=== PATIENT | male | born 1990 | race Caucasian/White ===

== ENCOUNTER 2017-07-03 16:50 | Emergency (ER) | payer OTHER ==
[2017-07-03 16:58] VITALS: BP 116/71
--- NOTE | 2017-07-03 17:23 | EDM.PDOC ---
ED HPI GENERAL MEDICAL PROBLEM - General Chief Complaint: Back Pain or Injury Stated Complaint: FELL/HIP Time Seen by Provider: 07/03/17 17:18 Source of Information: Reports: Patient History Limitations: Reports: No Limitations - History of Present Illness INITIAL COMMENTS - FREE TEXT/NARRATIVE: Bowen is a 27 yo male who presents to the ER with complaint of left low back and hip pain. States he was working at [employer] and was tightening a nut on a bolt when the wrench slipped off the nut. States he fell straight back onto his low back/buttocks/hip. He is unable to fully bear weight on the left leg. States when he straightens his leg all the way out it causes discomfort. If he bends his hip and knee it will give him some relief. Denies any bowel or bladder problems. Onset: Today Onset Date: 07/03/17 Onset Time: 16:45 Location: Reports: Back, Pelvis, Radiates to (left buttocks/hip) Quality: Reports: Sharp Severity: Moderate Improves with: Reports: Immobilization Worsens with: Reports: Movement Associated Symptoms: Reports: No Other Symptoms Left Lower Back Pain Score (Numeric/FACES): 6 - Related Data Allergies Allergy/AdvReac Type Severity Reaction Status Date / Time No Known Allergies Allergy Verified 07/03/17 17:06 Home Meds: Home Meds Multivitamin [Daily Multiple Vitamin] 1 tab PO DAILY 07/03/17 [History] Past Medical History - Past Surgical History Endocrine Surgical History: Reports: Other (See Below) Other Endocrine Surgeries/Procedures: partial thyroidectomy Social & Family History - Tobacco Use Smoking Status *Q: Never Smoker - Caffeine Use Caffeine Use: Reports: Soda - Recreational Drug Use Recreational Drug Use: No ED ROS GENERAL - Review of Systems Review Of Systems: ROS reveals no pertinent complaints other than HPI. Musculoskeletal: Reports: Back Pain, Leg Pain Neurological: Reports: Difficulty Walking. Denies: Numbness, Tingling, Weakness ED EXAM,LOWER BACK PAIN/INJURY - Physical Exam Exam: See Below Exam Limited By: No Limitations General Appearance: Alert, Mild Distress Back Exam: Muscle Spasm, Paraspinal Tenderness (L5/S1 left sided) Extremities: Limited Range of Motion (guarded left lower extremity,) Neurological: No Motor/Sensory Deficits, Difficulty Walking (d/t discomfort) Course - Vital Signs Last Recorded V/S: Last Vital Signs Temp 97.9 F 07/03/17 16:55 Pulse 66 07/03/17 16:55 Resp 16 07/03/17 16:55 BP 116/71 07/03/17 16:55 Pulse Ox 98 07/03/17 16:55 - Orders/Labs/Meds Orders: Active Orders 24 hr Category Date Time Status Hip Min 2V or 3V w Pelvis Lt [CR] Stat Exams 07/03/17 17:07 Taken Lumbar Spine 2 or 3V [CR] Stat Exams 07/03/17 17:07 Taken Meds: Medications Discontinued Medications Generic Name Dose Route Start Last Admin Trade Name Mckenna PRN Reason Stop Dose Admin Ketorolac Tromethamine 30 mg 07/03/17 17:54 Toradol IM 07/03/17 17:55 ONETIME ONE Departure - Departure Time of Disposition: 17:55 Disposition: Home, Self-Care 01 Condition: Good Clinical Impression: Low back pain with left-sided sciatica Qualifiers: Chronicity: acute Back pain laterality: left Qualified Code(s): M54.42 - Lumbago with sciatica, left side - Discharge Information Instructions: Back Pain, Adult, [id number] Referrals: PCP,None [Primary Care Provider] - Forms: ED Department Discharge Additional Instructions: 1) Recommend taking Tylenol and ibuprofen - 500mg of Tylenol with 400mg of ibuprofen every 6 hours as needed. 2) Ice area 20 minutes at a time, 5 times a day 3) Rest today 4) If any symptoms worsen, as discussed, or any new onset of symptoms, advise recheck. - Problem List & Annotations (1) Low back pain with left-sided sciatica SNOMED Code(s): 120435103 Code(s): M54.42 - LUMBAGO WITH SCIATICA, LEFT SIDE Status: Acute Current Visit: Yes - Problem List Review Problem List Initiated/Reviewed/Updated: Yes - My Orders Last 24 Hours: My Active Orders 07/03/17 17:07 Hip Min 2V or 3V w Pelvis Lt [CR] Stat Lumbar Spine 2 or 3V [CR] Stat - Assessment/Plan Last 24 Hours: My Active Orders 07/03/17 17:07 Hip Min 2V or 3V w Pelvis Lt [CR] Stat Lumbar Spine 2 or 3V [CR] Stat
[2017-07-03] MEDS ORDERED: Ketorolac 30 MG/ML SDV IM ONE (17:54)
== END 2017-07-03 18:05 | disposition home or self-care (01) ==
LOC: CC.ED 16:50
DX: M54.42 Lumbago with sciatica, left side (principal); Z90.89 Acquired absence of other organs
CPT/HCPCS: 72100; 73502; 96372; 99283; J1885